=== PATIENT | female | born 1950 | race Caucasian/White ===

== ENCOUNTER → 2017-03-10 | Day surgery (SDC) | payer MEDICARE ==
[~2017-03-10] MED LIST: BUPIVACAINE HCL PF 0.25% 30 ML VIAL ONE; KETOROLAC TROMETHAMINE 30 MG/ML (IVP) VIAL IV PUSH ONE; LACTATED RINGER'S 1000 ML INJ 1,000 ML ONE; MIDAZOLAM HCL 2 MG/2 ML VIAL ONE; ONDANSETRON HCL 4 MG/2 ML VIAL IV PUSH ONE; PROPOFOL 200 MG/20 ML AMP IV ONE; ceFAZolin 2 GM PREMIX 50 ML ONE
--- NOTE | 2017-03-10 16:54 | MP ---
cc: ROSA YBARRA DPM DATE OF SURGERY: 03/10/2017 PREOPERATIVE DIAGNOSIS: 1. Left foot ankle equinus. 2. Sesamoiditis tibial sesamoid. POSTOPERATIVE DIAGNOSIS 1. Left foot ankle equinus. 2. Sesamoiditis tibial sesamoid. PROCEDURES PERFORMED 1. Left gastrocnemius recession. 2. Tibial sesamoid excision in toto. SPECIMEN None ESTIMATED BLOOD LOSS Less than 3 ml COMPLICATIONS None ANESTHESIA General with local approximately 20 cc of 0.25% Marcaine plain ESTIMATED BLOOD LOSS Less than 30 ml TOURNIQUET TIME 30 minutes at a setting of 215 mmHg about the patient's mid thigh. PLAN OF ACTIVITY: PACU then DC home once stable per same-day surgery criteria. 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 We devised a plan to move forward with excision of tibial sesamoid to soften the forefoot. The patient also has equinus making her a toe walker. We devised the plan to move forward with lengthening of the posterior muscle group to allow increase dorsiflexion upon push-off however remaining to have muscle strength. The nature of the gastrocnemius recession. PROCEDURE IN DETAIL Under mild sedation the patient was brought to the operating room, placed on the operative the supine position following the induction of general anesthesia, local anesthesia was obtained about the surgical site of the calf and the medial forefoot utilizing standard block fashion. The left foot was then scrubbed, prepped and draped in the usual aseptic fashion up to [id number]. The foot was elevated, exsanguinated previously placed mid thigh tourniquet inflated to 215 mmHg. An incision was made just at the medial aspect of the gastrocnemius muscle belly of the posterior medial calf. Sharp and blunt dissection was carried down through subcutaneous fat and fascia being careful not to violate the sural nerve of the saphenous vein. A linear incision was made at the level of the fascial plane and then a linear incision was made releasing the gastrocnemius aponeurosis revealing the soleus muscle. There is noted to be no adhesions at this level. There is increase dorsiflexion. The deep fascia was closed utilizing Vicryl. Skin was closed utilizing nylon. Next, a medial as incision was made at the level of first MPJ. Sharp and blunt dissection was carried down to the joint capsule full-thickness incision was made down to bone. The tibial sesamoid was identified, excised the flexor was remained intact. The capsular layer was closed utilizing Vicryl. Skin was closed utilizing nylon. Sharp excision of the plantar medial skin neoplasm clinically poral keratoma took place, a bandage applied of the wounds, a bulky bandage and Elvin tourniquet was dropped. There is a prompt hyperemic response to all digits without any delayed capillary fill time she was then positioned within a controlled ankle motion boot. She is transferred from OR to PACU with all vital signs stable. She will ice, elevate, partial weight bear to tolerance. I will see the patient within 3-5 days. JODI Wu /2:10 PM /4:46 PM
== END | disposition home or self-care (01) ==
LOC: ESDC 11:42
PROVIDERS: ATTEND Podiatrist Foot & Ankle Surgery
DX: M21.6X2 Other acquired deformities of left foot (principal); M25.872 Other specified joint disorders, left ankle and foot
CPT/HCPCS: 01474; 01480; 27687; 28315; J0690; J1885; J2250; J2405; J3010; J7120